=== PATIENT | male | born 1945 | race African-American/Black ===

== ENCOUNTER 2020-06-18 20:13 | Emergency (ER) | payer OTHER ==
[~2020-06-18] VITALS: Ht 180.3 cm; Wt 95.3 kg
[~2020-06-18 20:13] MED LIST: AMLODIPINE BESYL5 MG PO; CARVEDILOL25 MG PO; CORTEF 20 MG TA20 MG PO; IMDUR 60 MG TAB60 M1 PO; LAMICTAL200 MG PO; LEVOTHYROXINE0.05 MG PO; LIPITOR10 MG PO; ZESTRIL40 MG PO
[2020-06-18 21:24] LABS: ABSOLUTE NEUTROPHILS 10.5 thou/uL (1.4-8.2); BASOPHILS 0.9 % (0.0-2.0); EOSINOPHILS 0.6 % (0.0-3.0); HEMATOCRIT 41.6 % (42.0-52.0); HEMOGLOBIN 13.3 gm/dL (14.0-18.0); MCH 26.4 pg (26.0-34.0); MCHC 32.1 g/dL (28.0-37.0); MCV 82.2 fL (80.0-100.0); MONOCYTES 8.9 % (1.0-8.0); PLATELET COUNT 175 thou/uL (150-400); POLYS 73.6 % (36.0-66.0); RBC 5.06 mil/uL (4.50-6.00); RDW 15.8 % (10.5-14.5); WBC 14.3 thou/uL (4.0-11.0)
[2020-06-18 21:27] LABS: ANION GAP 13 mmol/L (7-16); BUN 17 mg/dL (7-18); CHLORIDE 104 mmol/L (98-107); CO2 24 mmol/L (21-32); CREATININE 1.8 mg/dL (0.7-1.3); GLUCOSE 100 mg/dL (74-106); POTASSIUM 3.9 mmol/L (3.5-5.1); SODIUM 141 mmol/L (136-145)
[2020-06-18 21:36] LABS: TROPONIN-I <0.06 ng/mL (<0.06)
[2020-06-19 00:31] LABS: URINE BILIRUBIN NEGATIVE (Negative); URINE BLOOD 3+ (Negative); URINE CLARITY TURBID; URINE COLOR RED; URINE GLUCOSE-RANDOM* NEGATIVE (Negative); URINE KETONES 1+ (Negative); URINE PROTEIN (DIPSTICK) 2+ (Negative)
[2020-06-19 00:33] LABS: URINE LEUKOCYTES-REFLEX 2+ (Negative); URINE NITRITE-REFLEX POSITIVE (Negative)
[2020-06-19 00:39] LABS: AMP/METHAMP Negative (Negative); BARBITURATES Negative (Negative); BENZODIAZEPINES Negative (Negative); COCAINE Negative (Negative); METHADONE Negative (Negative); OPIATES Negative (Negative); PCP Negative (Negative)
[2020-06-19 00:45] LABS: BACTERIA-REFLEX 1-9 Few /HPF (None Seen); CASTS None Seen /LPF (None Seen); CRYSTALS None Seen /LPF (None Seen); MUCUS 0-3 Light strn/LPF (None Seen); SQUAMOUS 0-3 Few /LPF (0-3); URINE RBC >20 Many /HPF (0-2); WBC CLUMPS Moderate (None Seen)
[2020-06-19] MEDS ORDERED: CIPRO500 M1 PO (00:52)
[2020-06-19 01:10] VITALS: BP 144/80
--- NOTE | 2020-06-20 07:17 | EKG ---
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: [facility] : 1945 Requested By: João Porter Order Number: [id number] MD: Justice Kunz Measurements Intervals [place] Rate: 91 P: -4 [place]: 168 QRS: -54 QRSD: 103 T: 85 QT: 352 QTc: 434 Interpretive Statements Sinus rhythm Ventricular premature complex Left anterior fascicular block Abnormal R-wave progression, late transition Left ventricular hypertrophy Baseline wander in lead(s) V6 No previous ECG available for comparison Electronically Signed On 06-20-2020 7:17:17 RECORD MAKER by Justice Kunz [email or web address] <ELECTRONICALLY SIGNED> By: Justice Kunz MD, [facility] 06/20/20716 16 16 Justice Kunz MD, FACC /EPI
== END 2020-06-19 01:10 | disposition home or self-care (01) ==
LOC: ER 20:13
PROVIDERS: Nurse Practitioner
DX: N39.0 Urinary tract infection, site not specified (principal); I10 Essential (primary) hypertension; Z79.899 Other long term (current) drug therapy; Z88.2 Allergy status to sulfonamides

== ENCOUNTER 2021-01-21 18:28 | Inpatient (IN) | payer OTHER ==
[~2021-01-21] VITALS: Ht 172.7 cm; Wt 77.3 kg
[~2021-01-21 18:28] MED LIST changes: -AMLODIPINE BESYL5 MG PO; +CIPRO500 M1 PO; +NORVASC10 MG PO
[2021-01-21 18:50] VITALS: BP 121/67
[2021-01-21 20:03] LABS: ABSOLUTE NEUTROPHILS 12.1 thou/uL (1.4-8.2); BASOPHILS 0.8 % (0.0-2.0); EOSINOPHILS 0.3 % (0.0-3.0); HEMATOCRIT 41.8 % (42.0-52.0); HEMOGLOBIN 13.9 gm/dL (14.0-18.0); LYMPHOCYTES 10.6 % (24.0-44.0); MCH 26.9 pg (26.0-34.0); MCHC 33.2 g/dL (28.0-37.0); MONOCYTES 9.6 % (1.0-8.0); PLATELET COUNT 170 thou/uL (150-400); POLYS 78.7 % (36.0-66.0); RBC 5.16 mil/uL (4.50-6.00); WBC 15.4 thou/uL (4.0-11.0)
[2021-01-21 20:11] LABS: CALCIUM 9.1 mg/dL (8.5-10.1); CREATININE 1.8 mg/dL (0.7-1.3)
[2021-01-21 20:12] LABS: URINE BILIRUBIN NEGATIVE (Negative); URINE BLOOD 2+ (Negative); URINE CLARITY CLEAR; URINE COLOR YELLOW; URINE GLUCOSE-RANDOM* NEGATIVE (Negative); URINE KETONES 1+ (Negative); URINE LEUKOCYTES-REFLEX TRACE (Negative); URINE NITRITE-REFLEX NEGATIVE (Negative); URINE PROTEIN (DIPSTICK) TRACE (Negative)
[2021-01-21 20:18] LABS: ALBUMIN 3.8 g/dL (3.4-5.0); TOTAL PROTEIN 7.4 g/dL (6.4-8.2)
[2021-01-21 20:35] LABS: CASTS None Seen /LPF (None Seen); MUCUS 4-6 Moderate strn/LPF (None Seen); SQUAMOUS None Seen /LPF (0-3)
[2021-01-21 20:36] LABS: URINE RBC 3-10 Few /HPF (NONE SEEN); URINE WBC-REFLEX 6-15 Few /HPF (0-5); WBC CLUMPS Few (None Seen)
[2021-01-21 20:37] LABS: BACTERIA-REFLEX 1-9 Few /HPF (None Seen)
[2021-01-21 20:38] LABS: CRYSTALS None Seen /LPF (None Seen)
[2021-01-21] MEDS ORDERED: DULCOLAX STOOL100 M1 PO (21:27)
[2021-01-21] MEDS ORDERED: ALLOPURINOL 10100 M1 PO (21:27)
[2021-01-21] MEDS ORDERED: VITAMIN D310 MC2 PO (21:28)
[2021-01-21] MEDS ORDERED: ARICEPT10 M1 PO (21:29)
[2021-01-21] MEDS ORDERED: SUPER THERAVIT1 EACH PO (21:31)
[2021-01-21] MEDS ORDERED: MEMANTINE HCL10 MG PO (21:31)
[2021-01-21] MEDS ORDERED: FLOVENT DISKUS50 MCG NASAL (21:32)
[2021-01-22 05:51] LABS: HEMATOCRIT 38.8 % (42.0-52.0); HEMOGLOBIN 12.6 gm/dL (14.0-18.0); MCH 26.7 pg (26.0-34.0); MCHC 32.5 g/dL (28.0-37.0); MCV 82.1 fL (80.0-100.0); RBC 4.73 mil/uL (4.50-6.00); RDW 14.8 % (10.5-14.5); WBC 13.6 thou/uL (4.0-11.0)
[2021-01-22 05:58] LABS: CALCIUM 7.8 mg/dL (8.5-10.1); CREATININE 1.5 mg/dL (0.7-1.3); POTASSIUM 3.8 mmol/L (3.5-5.1)
--- NOTE | 2021-01-22 09:46 | NUR ---
75 year old male presenting to the ED on 01-21-21 for suspected UTI. Per the pt's family, pt has had increased confusion and a temp above 100 all day today. Patient also had a decrease in PO intake. Per ED assessment patient is alert and confused. Per the patient's family the patient normally participates in an Adult Day Care. Per ED assessment patient is listed as vaccinated and ID NOW in ED shows Negative. The patient has been admitted with Sepsis, UTI, HTN ? seizure disorder. The patient was escorted to the ED by his son Jaden Marcos at [phone]. 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 Jaden states the patient has been to [facility], [place] and [place] in the past for SNF care. Re-introduced the role of CM and also gave my number as a contact, and informed him that once his father has a bed another member of the CM would be following up.
[2021-01-22 10:22] VITALS: BP 138/60
[2021-01-22 17:44] VITALS: BP 157/78
[2021-01-22 18:13] VITALS: BP 157/78
[2021-01-22 18:34] VITALS: BP 157/78
[2021-01-22 22:18] VITALS: BP 155/92
--- NOTE | 2021-01-23 03:07 | NUR ---
PT ADMITTED TO THE UNIT WITH C/O FEVER .PT IS A/O TO SELF .PT IS FROM HOME AND ATTENDS ADULT DAYCARE.PT IS INCONTINENT .PT CONFUSE AND UNABLE TO ANSWER QUESTIONS.PT APPEAR TO BE IN NO ACUTE DISTRESS AND DENIED PAIN.IV ACCESS ON LAC WITH NS AT 126CC/HR.WILL CONTINUE TO MONITOR
[2021-01-23 07:24] VITALS: BP 168/69
--- NOTE | 2021-01-23 15:01 | NUR ---
PT IS A&O*1, RESPONSE TO NAME, ROOM AIR, NO PAIN REPORT. HAS BEEN TURN Q2 WITH MAX ASSISTANCE. DC NS FLUID DUE TO PT INCREASE APPETITE AND EAT&DRINK MOST FOOD WITHIN TRAY. CONDOM CATETHER DUE TO INCOTINENT IS INTACT. NSR SHOWING ON TELE. BED ALARM IS ON. WILL KEEP MONITOR PT'S SAFETY UNTIL SHIFT CHANGE.
[2021-01-23 15:36] LABS: ABSOLUTE NEUTROPHILS 8.2 thou/uL (1.4-8.2); BASOPHILS 0.4 % (0.0-2.0); EOSINOPHILS 0.6 % (0.0-3.0); HEMATOCRIT 39.3 % (42.0-52.0); HEMOGLOBIN 12.9 gm/dL (14.0-18.0); LYMPHOCYTES 7.1 % (24.0-44.0); MCH 26.9 pg (26.0-34.0); MCHC 32.9 g/dL (28.0-37.0); MCV 81.7 fL (80.0-100.0); MONOCYTES 5.5 % (1.0-8.0); PLATELET COUNT 165 thou/uL (150-400); POLYS 86.4 % (36.0-66.0); RBC 4.81 mil/uL (4.50-6.00); RDW 14.6 % (10.5-14.5); WBC 9.5 thou/uL (4.0-11.0)
--- NOTE | 2021-01-23 15:38 | NUR ---
PT IS A&O*3, ROOM AIR, NEED MAX ASSISTANCE TO TURN Q2, INCOTINNET. HAD THREE LARGE LOOSE BM TODAY, NOTIFIED FOR CHANGING SCHEDULE MIRAX TO PRN. PT'S POTASSOUM WAS LOW IN THE MORNING 2.9, 2 DOSE OF 40 PO K GIVEN, RECHECKED AT 13:00, LOW K 3.2. CALLED FOR FURTHER ORDER. NS CHANGED TO 0.45 SODIUM CHLORIDE WITH KCL TO PROTECT PT'S K LEVEL. SPEECH THERAPY EVALUATED PT AND KEEP NEED HONEY THICKER WITH LIQUID. PUT A CANE OF THICK UP FOR PT USE. NO PAIN. IV WAS ABSENT WHEN ASSESS PT IN THE MORNING. NEW IV PUT IN AT RIGHT AC IN 22 G. BED ALARM IS ON. SINUS TACHY ON TELE, HR 100. WILL KEEP MONITOR PT'S SAFETY UNTIL SHIFT CHANGE.
[2021-01-23 15:43] LABS: CALCIUM 8.5 mg/dL (8.5-10.1); CREATININE 1.5 mg/dL (0.7-1.3); POTASSIUM 3.7 mmol/L (3.5-5.1)
[2021-01-23 16:36] VITALS: BP 137/86
[2021-01-23 21:39] VITALS: BP 185/99
[2021-01-23 23:12] VITALS: BP 145/75
[2021-01-24 02:35] LABS: HEMATOCRIT 39.3 % (42.0-52.0); HEMOGLOBIN 12.7 gm/dL (14.0-18.0); MCH 26.2 pg (26.0-34.0); MCHC 32.3 g/dL (28.0-37.0); MCV 81.3 fL (80.0-100.0); RBC 4.83 mil/uL (4.50-6.00); RDW 15.6 % (10.5-14.5); WBC 9.4 thou/uL (4.0-11.0)
--- NOTE | 2021-01-24 02:39 | NUR ---
PT CARE ASSUMED WITH PT IN BED AT 1900.PT IS A/O X1 .PT IS BEDREST.PT DENIED PAIN.PT IS INCONTINENT TO B/B.PT HAD A TEMP OF 99.3 AND TYLENOL ADMINISTERED.PT IS ON ROOM AIR.PT APPEAR TO BE IN NO ACUTE DISTRESS.WILL CONTINUE TO MONITOR
[2021-01-24 02:45] LABS: CALCIUM 8.1 mg/dL (8.5-10.1); CREATININE 1.2 mg/dL (0.7-1.3); POTASSIUM 3.7 mmol/L (3.5-5.1)
[2021-01-24 07:08] VITALS: BP 189/100
[2021-01-24 07:10] VITALS: BP 179/106
[2021-01-24 11:10] VITALS: BP 115/69
--- NOTE | 2021-01-24 12:31 | NUR ---
ASSUMED PT CARE THIS AM. PT A&OX1, DOES NOT MAKE NEEDS KNOWN. FALL PRECAUTIONS ARE IN PLACE, CALL LIGHT IN REACH. PATIENT RENMAINS INCONTINENT, EXTERNAL MALE CATHETER WORKING. BLOOD PRESSURE ELEVATED, GAVE ALL BLOOD PRESSURE MEDICATION AND BLOOD PRESSURE DECREASED ACCORDINGLY. PATIENT IV PATENT, FLUIDS INFUSING. PATIENT TOOK MORNING MEDICATIONS WITHOUT ISSUE.
[2021-01-24 14:32] VITALS: BP 146/92
--- NOTE | 2021-01-24 17:59 | NUR ---
PT AND OT EVALS NEEDED AND IN PROCESS. PT MAY BE NEEDING POST ACUTE CARE. CM TO FOLLOW FOR DC ANTICIPATED NEEDS.
[2021-01-24 21:06] VITALS: BP 179/90
--- NOTE | 2021-01-25 04:49 | NUR ---
PATIENT AOX1 CONFUSED AND FORGETFUL. PATIENT ENCOURAGED FLUIDS. FALL PRECAUTON IN PLACE. PATIENT INCONTIENT PERICARE AND BARRIER CREAM APPLIED NEEDED.PATIENT DENIED PAIN OR DISCOMFORT.PATIENT IN BED ASLEEP AT THIS TIME BREATHING REGULAR AND UNLABOURED.
[2021-01-25 07:10] VITALS: BP 182/101
[2021-01-25 09:45] VITALS: BP 109/68
[2021-01-25 15:19] VITALS: BP 142/81
--- NOTE | 2021-01-25 17:52 | NUR ---
Alert, calm and cooperative. oxygen 97% on room air. Dr. Armstrong is aware of it.
[2021-01-25 19:31] VITALS: BP 170/86
[2021-01-26 06:16] LABS: HEMATOCRIT 44.6 % (42.0-52.0); MCH 26.8 pg (26.0-34.0); MCV 81.2 fL (80.0-100.0); RBC 5.5 mil/uL (4.50-6.00); RDW 14.8 % (10.5-14.5); WBC 7.3 thou/uL (4.0-11.0)
[2021-01-26 06:22] LABS: HEMOGLOBIN 14.7 gm/dL (14.0-18.0)
[2021-01-26 06:44] LABS: CALCIUM 9.1 mg/dL (8.5-10.1); CREATININE 1.2 mg/dL (0.7-1.3); POTASSIUM 3.8 mmol/L (3.5-5.1)
[2021-01-26 09:00] VITALS: BP 163/87
[2021-01-26 16:30] VITALS: BP 151/85
[2021-01-26 19:08] VITALS: BP 158/98
--- NOTE | 2021-01-27 03:54 | NUR ---
PROGRESS PT ALERT TO SELF PLEASANT AND COOPERATIVE. NO ATTEMPTS TO GET OOB INDEPENDENTLY THIS SHIFT. BED ALARM ON AND ALL FALL PRECAUTIONS IN PLACE. PT REPOSITIONS SELF INDEPENDENTLY AND WITH ENCOURAGEMENT. BP ELEVATED AT 158/98 HYDRALAZINE NOT GIVEN SCHEDULED COREG GIVEN INSTEAD. TAKING ADEQUATE PO FLUIDS AND HAD ICE CREAM BEFORE BED SLEPT MOST OF SHIFT. PLAN TO DC TO SNF TODAY.
--- NOTE | 2021-01-27 07:26 | NUR ---
Assess for length of stay. Admit with urosepsis. Eating 75-100% most meals and no wt loss was reported. Low nutrition risk
[2021-01-27 07:50] VITALS: BP 144/103
--- NOTE | 2021-01-27 12:09 | NUR ---
CARE TEAM INDICATED THAT PT'S SON IS INTERESTEDIN PT GOING TO SKILLED UPON DC. CM CALLED AND LEFT VM WITH PT'S SON. CM FOLLOWING REGARDING DC PLANNING.
--- NOTE | 2021-01-27 14:14 | NUR ---
FAXED REFERRAL AND NEGATIVE COVID RESULT (01/21/21) TO [facility]. NOTED TO ALLISON/ADMISSIONS TO PLEASE REVIEW AND SUBMIT FOR INSURANCE AUTHORIZATION. WILL CONFIRM SHE RECEIVED AND BED AVAILABILITY. [facility] P [phone]; FAX [phone]; M [phone]
[2021-01-27 16:49] VITALS: BP 130/75
--- NOTE | 2021-01-27 17:13 | NUR ---
ASSUMED CARE OF PATIENT AT SHIFT CHANGE. ASSESSMENT CHARTED. MEDICATIONS GIVEN PER EMAR. BP IS ELEVATED; PATIENT GIVEN SCHEDULED BP & CARDIAC MEDS ONLY TO NOT CAUSE BP TO DROP EXCESSIVELY. PATIENT IS CONFUSED AND CONSTANTLY HITS THE CALL LIGHT BUT DENIES NEEDS. FREQUENT TURNING IS OFFERED & DONE. PATIENT HAS A CONDOM CATHETER BUT IS INCONTINENT OF BOTH BOWEL AND BLADDER. TAKES PUREED FOODS WELL & MEDICATIONS CRUSHED. PATIENT IS IN PROCESS OF BEING ACCEPTED TO A SNF; PATIENT IS STABLE. NO ISSUES. FALL PRECAUTIONS REMAIN IN PLACE AT ALL TIMES; NO ISSUES WITH PT/OT & SITTING IN CHAIR FOR DINNER. WILL CONTINUE TO MONITOR AND FOLLOW PLAN OF CARE
[2021-01-27 19:38] VITALS: BP 148/85
--- NOTE | 2021-01-28 04:45 | NUR ---
PT SLEPT MOST OF THE NIGHT. RESPIRATIONS EVEN AND UNLABORED. REPOSITIONED TO PREVENT SKIN BREAKDOWN. PT IS ORIENTED TO SELF, BUT PLEASANTLY CONFUSED WHEN AWAKE. EXTERNAL CATHETER IN PLACE AND DRAINING WELL. FALL PRECAUTIONS IN PLACE. PROGRESSING SLOWLY TOWARD POC GOALS.
[2021-01-28 06:01] LABS: HEMATOCRIT 42.6 % (42.0-52.0); HEMOGLOBIN 14.2 gm/dL (14.0-18.0); MCHC 33.4 g/dL (28.0-37.0); MCV 80.8 fL (80.0-100.0); RBC 5.28 mil/uL (4.50-6.00); RDW 14.9 % (10.5-14.5); WBC 6.4 thou/uL (4.0-11.0)
[2021-01-28 06:30] LABS: CALCIUM 8.8 mg/dL (8.5-10.1); CREATININE 1.4 mg/dL (0.7-1.3); POTASSIUM 3.6 mmol/L (3.5-5.1)
[2021-01-28 07:12] VITALS: BP 167/93
--- NOTE | 2021-01-28 09:48 | NUR ---
XAVIER SPOKE WITH MARGUERITE IN ADMISSION AT [facility] THIS AM AND SHE INDICATED THAT THEY CAN ACCEPT PT FOR ADMISSION AND THEY WILL SUBMIT FOR AUTH FROM [facility]. NOW AWAITING AUTH.
[2021-01-28 13:21] VITALS: BP 158/74
--- NOTE | 2021-01-28 14:45 | NUR ---
PT IS A&O*2, ROOM AIR, NO PAIN. NEED MODERATE ASSISTANCE TO GET UP. WALKED AND SIT UP IN THE CHAIR TODAY. REFUSED MORNING MEDICATON DUE TO CONFUSION. NOTIFIED AND RE-EDUCATED PT COUPLE TIMES AND TAKEN AROUNG 1300. NSR ON TELE AND WILL KEEP MONITOR PATIENT'S SAFETY AND VITAL SIGNS.
[2021-01-28 15:12] VITALS: BP 141/81
[2021-01-28 19:27] VITALS: BP 128/81
--- NOTE | 2021-01-29 03:21 | NUR ---
ASSUMED PT CARE AT 1905. PT IS ALERT AND ORIENTED X2. PT HAD A FLAT AFFECT.PT IS MOD ASSIST TO THE BED WITH GB. MEDICTATIONS WERE GIVEN PER EMAR. VS ARE STABLE AND ASSESSMENT CHARTED. PT HAS EXTERNAL CATHETER ON . PT DID NOT VOICE ANY CONCERNS AND NO VISIBLE SIGNS OF DISTRESS WAS NOTED. PT TOLERATING RA. FALLL PREACUTIONS IN PLACE WITH CALL LIGHT WITHIN REACH. WILL CONTINUE TO MONITOR.
[2021-01-29 08:40] VITALS: BP 176/93
[2021-01-29 15:05] VITALS: BP 158/92
--- NOTE | 2021-01-29 15:15 | NUR ---
PT IS A&O*4, ROOM AIR, NSR ON TELE, NO PAIN. WORKED WITH PT, OT AND SIT UP TO THE CHAIR. BED ALARM AND CHAIR ALARM HAS BEEN APPLIED. EXTERNAL CATETHER IS INTACT AND WORKS WELL FOR PT. WILL KEEP MONITOR PATINET'S SAFETY UNTIL DISCHARGE.
--- NOTE | 2021-01-29 16:45 | NUR ---
XAVIER HEARD FROM CHEALSEA AT [facility] AND SHE SAID THAT LEILA IS NEEDING A FORM COMPLETED BEFORE THEY WILL REVIEW A REFERRAL. CM COMPLETED FORM AND FAXED BACK WITH UPDATED CLINICAL AND THEYAPY NOTES. AWAITING AUTH FOR SKILLED AT [facility]. CM FOLLOWING REGARDING DC PLANNING.
[2021-01-29 20:19] VITALS: BP 168/97
--- NOTE | 2021-01-30 01:32 | NUR ---
ASSUMED PT CARE AT 1900. PT IS ALERT AND ORIENTED WITH CONFUSION. PT CAN BE IMPULSIVE AND TRIES TO GET UP WITHOUT ANY ASSISTANCE. PT HAS EXTERNAL CATHETER WHICH IS PATENT. VS DONE AND MEDS GIVEN PER EMAR ORDER.PT TOLERATING RA. BED ON LOWEST LOCKED POSITION WITH BED ALARM ON AND CALL LIGHT WITHIN REACH. WILL CONTINUE TO MONITOR.
[2021-01-30 07:24] VITALS: BP 155/82
--- NOTE | 2021-01-30 10:27 | NUR ---
ASSUMED PT CARE THIS AM. PT IS ALERT & ORIENTED X2 TO PERSON AND PLACE BUT FORGETFUL AT TIMES. PT IS UP WITH ASSIST X1 WITH WALKER AND GAITBELT. PT HAS CONDOM CATH PLACE IN. PT IS ON ROOM AIR. PT IS ON TELE MONITOR ON. PT HAS IV SITE ON L AC SALINE LOCKED. PT TOLERATED MEDICATION AND DIET WELL. NO C/O OF PAIN, NAUSEA AND VOMITING. PHYSICAL THERAPY WAS WORKING WITH PT TODAY. AWAITING FOR INSURANCE AUTHORIZATION. WILL CONTINUE TO MONITOR PT. FOLLOW POC.
[2021-01-30 15:14] VITALS: BP 134/87
[2021-01-30 20:07] VITALS: BP 135/81
--- NOTE | 2021-01-31 02:41 | NUR ---
PT CARE ASSUMED WITH PT IN CHAIR WATCHING TV.PT IS A/O X2.PT IS UP WITH X2 ASSIST WITH GAIT BELT AND WALKER.PT HAS AN EXTERNAL MALE CATHETER IN PLACE.PT TRYING TO GET OUT OF BED,TAKING CLOTHES OFF AND DRIP MOLDER OFF.MIRLANDE DOWLING NOTIFIED AND HALDOL ONE DOSE ORDERED.IV ACCESS ON LT AC SL.PT TAKE MEDS WHOLE WITH NO ISSUES.PT IS ON ROOM AIR.FALL PRECAUTIONS IN PLACE.WILL CONTINUE TO MONITOR
[2021-01-31 07:59] VITALS: BP 183/74
--- NOTE | 2021-01-31 11:19 | NUR ---
THORMONTANA ANN WAS FINALLY RECIEVED FOR PT TO DC TO [facility] THIS DAY. KOREY LOPEZ TRANSPROT ARRANGED FOR 1400. CM NOTIFIED PT AND SON AND THEY ARE AGREEABLE. CHART COPY MADE. ORDERS TO BE FAXED ONCE COMPLETED. NURSE GIVEN NUMBER FOR REPORT. NO OTHER CM INTERVETION INDICATED. CASE CLOSED.
[2021-01-31 12:09] VITALS: BP 125/84
--- NOTE | 2021-01-31 12:26 | NUR ---
ASSUMED CARE OF PATIENT AT SHIFT CHANGE. ASSESSMENT CHARTED. MEDICATIONS ADMINISTERED PER EMAR. PATIENT IS ALERT TO SELF AND RESPONSIVE. PATIENT FELL LAST WEEK AND IS ON FALL PRECAUTIONS WITH FREQUENT CHECKS. PATIENT HAD A HIGH BP WHICH WAS LOWERED AFTER BP MEDS WERE ADMINISTERED; VSS. PATIENT REFUSED BREAKFAST BUT PREFERS SWEETS AND DID EAT HIS ICE CREAM WITH HIS MEDICATIONS & HAD SNACKS. PATIENT REMAINS MEDICALLY STABLE AND HAS BEEN AUTHORIZED BY INSURANCE [facility]. INCONT OF B&B; Q2 TURNS OFFERED. SR ON TELE. NO OTHER ISSUES THIS SHIFT. WILL CONTINUE FFREQUENT MONITORING ON PATIENT
[2021-01-31] MEDS ORDERED: CLONIDINE HCL0.3 M3 PO (12:47)
[2021-01-31] MEDS ORDERED: LISINOPRIL20 MG PO (12:47)
--- NOTE | 2021-01-31 17:10 | NUR ---
REPORT CALLED TO LINDSAY COLON WHO WILL BE ADMITTING PATIENT TO [facility].
== END 2021-01-31 17:10 | DRG 871 ==
LOC: ER 18:28 → EROBS 21:48 → 4W 21:48 → EROBS 01-22 08:46 → 4W 01-22 18:27
PROVIDERS: Emergency Medicine; Hospitalist; Nurse Practitioner Family; ADMIT Internal Medicine; ATTEND Internal Medicine
DX: A41.9 Sepsis, unspecified organism (principal); G93.41 Metabolic encephalopathy; N17.0 Acute kidney failure with tubular necrosis; N39.0 Urinary tract infection, site not specified; E23.0 Hypopituitarism; E03.9 Hypothyroidism, unspecified; F03.90 Unspecified dementia, unspecified severity, without behavioral disturbance, psychotic disturbance, mood disturbance, and anxiety; G40.909 Epilepsy, unspecified, not intractable, without status epilepticus; E78.5 Hyperlipidemia, unspecified; M10.9 Gout, unspecified; N18.9 Chronic kidney disease, unspecified; I12.9 Hypertensive chronic kidney disease with stage 1 through stage 4 chronic kidney disease, or unspecified chronic kidney disease; D49.6 Neoplasm of unspecified behavior of brain; R53.81 Other malaise; E86.0 Dehydration; Z88.2 Allergy status to sulfonamides; Z20.822 Contact with and (suspected) exposure to COVID-19
CPT/HCPCS: 10045

== ENCOUNTER 2021-02-11 13:34 | Inpatient (IN) | payer OTHER ==
[~2021-02-11] VITALS: Ht 175.3 cm; Wt 80.7 kg
[~2021-02-11 13:34] MED LIST changes: +ALLOPURINOL 10100 M1 PO; +ARICEPT10 M1 PO; +CLONIDINE HCL0.3 M3 PO; +DULCOLAX STOOL100 M1 PO; +FLOVENT DISKUS50 MCG NASAL; +LISINOPRIL20 MG PO; +MEMANTINE HCL10 MG PO; +SUPER THERAVIT1 EACH PO; +VITAMIN D310 MC2 PO
[2021-02-11 13:35] VITALS: BP 102/65
[2021-02-11 14:10] LABS: ABSOLUTE NEUTROPHILS 7.3 thou/uL (1.4-8.2); BASOPHILS 0.7 % (0.0-2.0); EOSINOPHILS 3.6 % (0.0-3.0); HEMATOCRIT 41.4 % (42.0-52.0); HEMOGLOBIN 13.3 gm/dL (14.0-18.0); LYMPHOCYTES 15.3 % (24.0-44.0); MCH 26.5 pg (26.0-34.0); MCV 82.7 fL (80.0-100.0); MONOCYTES 4.9 % (1.0-8.0); PLATELET COUNT 189 thou/uL (150-400); POLYS 75.5 % (36.0-66.0); RBC 5.01 mil/uL (4.50-6.00); RDW 14.8 % (10.5-14.5); WBC 9.6 thou/uL (4.0-11.0)
[2021-02-11 14:15] LABS: URINE BILIRUBIN NEGATIVE (Negative); URINE BLOOD 3+ (Negative); URINE CLARITY SL CLOUDY; URINE COLOR YELLOW; URINE GLUCOSE-RANDOM* NEGATIVE (Negative); URINE KETONES NEGATIVE (Negative); URINE LEUKOCYTES-REFLEX 1+ (Negative); URINE NITRITE-REFLEX NEGATIVE (Negative); URINE PROTEIN (DIPSTICK) NEGATIVE (Negative); URINE SPECIFIC GRAVITY 1.015 (1.005-1.035); URINE UROBILINOGEN 0.2 E.U./dl (0.2-1.0)
[2021-02-11 14:17] LABS: ANION GAP 5 mmol/L (7-16); BUN 19 mg/dL (7-18); CALCIUM 8.5 mg/dL (8.5-10.1); CHLORIDE 106 mmol/L (98-107); CO2 29 mmol/L (21-32); CREATININE 1.4 mg/dL (0.7-1.3); GLUCOSE 100 mg/dL (74-106); POTASSIUM 3.9 mmol/L (3.5-5.1); SODIUM 140 mmol/L (136-145)
[2021-02-11 14:26] LABS: ALBUMIN 3.2 g/dL (3.4-5.0); MAGNESIUM 2.1 mg/dL (1.8-2.4); SGOT 27 U/L (15-37); SGPT 51 U/L (30-65); TOTAL BILIRUBIN 0.4 mg/dL (0.2-1.0); TOTAL PROTEIN 6.8 g/dL (6.4-8.2); TROPONIN-I <0.06 ng/mL (<0.06)
[2021-02-11 14:40] LABS: BACTERIA-REFLEX 1-9 Few /HPF (None Seen); CASTS None Seen /LPF (None Seen); CRYSTALS None Seen /LPF (None Seen); SQUAMOUS 0-3 Few /LPF (0-3); URINE WBC-REFLEX 6-15 Few /HPF (0-5)
[2021-02-11 15:48] VITALS: BP 120/70
[2021-02-11 16:11] VITALS: BP 119/67
[2021-02-11 16:40] VITALS: BP 124/69
--- NOTE | 2021-02-11 18:26 | NUR ---
PATIENT ADMIT TO UNIT AT 1700 FROMER. A/O X2. VSS. DENIES PAIN. NO DIZINESS. GOOD APPETITE. CALLED [facility] TO FAX OVER MED LIST. WILL KEEP MONITOR.
[2021-02-11] MEDS ORDERED: HYDROCORTISONE30 GM PO (18:50)
[2021-02-11 19:32] VITALS: BP 139/72
[2021-02-12 00:24] VITALS: BP 145/78
--- NOTE | 2021-02-12 01:25 | NUR ---
ASSUMED CARE OF PT AT 1900, PT IS ALERT TO SELF AND PLEASENT. ASSESSMENT COMPLETED NOTED. PT ON RA, WITH FALL PRECAUTIONS IN PLACE. PT BELIEVES HE IS AT HOME AND THE YEAR IS 1989. PT IS INCONTINENT OF BOWEL AND BLADDER AND WILL STAND UP WHEN WET. WILL CONTINUE TO WORK TOWARDS PT'S POC.
--- NOTE | 2021-02-12 01:32 | NUR ---
ASSUMED CARE OF PT AT 1900, PT IS A/O X4 WITH IV FLUIDS INFUSING. ASSESSMENT COMPLETED NOTED. PT HAS MYNX CLOSURE, THAT IS CLEAN, DRY AND INTACT. PT DENIES PAIN AT THIS TIME, WILL CONTINUE TO WORK TOWARDS PT'S POC.
[2021-02-12 04:39] VITALS: BP 173/91
[2021-02-12 04:54] VITALS: BP 145/82; BP 172/100
--- NOTE | 2021-02-12 07:47 | EKG ---
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: LUIS MANUEL : 1945 Requested By: Chadwick Ceh Order Number: [id number] MD: Justice Kunz Measurements Intervals [place] Rate: 57 P: 9 FL: 186 QRS: -44 QRSD: 111 T: -25 QT: 436 QTc: 425 Interpretive Statements Sinus rhythm Abnormal R-wave progression, early transition Left ventricular hypertrophy Nonspecific T abnormalities, inferior leads Compared to ECG 06/18/2020 20:17:20 T-wave abnormality now present ST (T wave) deviation now present Ventricular premature complex(es) no longer present Electronically Signed On 02-12-2021 7:47:20 CDT by Justice Kunz [email or web address] <ELECTRONICALLY SIGNED> By: Justice Kunz MD, [facility] 02/12/21 0747 1334 1334 Justice Kunz MD, [facility] /EPI
[2021-02-12 08:27] VITALS: BP 154/97
[2021-02-12 10:44] LABS: HEMATOCRIT 42.3 % (42.0-52.0); HEMOGLOBIN 13.6 gm/dL (14.0-18.0); MCH 26.4 pg (26.0-34.0); MCHC 32.1 g/dL (28.0-37.0); MCV 82.3 fL (80.0-100.0); RBC 5.14 mil/uL (4.50-6.00); RDW 14.9 % (10.5-14.5); WBC 7.3 thou/uL (4.0-11.0)
[2021-02-12 11:15] LABS: ALBUMIN 3.3 g/dL (3.4-5.0); ANION GAP 8 mmol/L (7-16); BUN 12 mg/dL (7-18); CALCIUM 8.7 mg/dL (8.5-10.1); CHLORIDE 105 mmol/L (98-107); CO2 29 mmol/L (21-32); CREATININE 1.4 mg/dL (0.7-1.3); GLUCOSE 101 mg/dL (74-106); POTASSIUM 3.7 mmol/L (3.5-5.1); SGOT 22 U/L (15-37); SGPT 49 U/L (30-65); SODIUM 142 mmol/L (136-145); TOTAL BILIRUBIN 0.6 mg/dL (0.2-1.0); TROPONIN-I <0.06 ng/mL (<0.06)
--- NOTE | 2021-02-12 12:01 | NUR ---
Case opened to follow for dc planning. Pt was recently here with UTI/penumonia and was dc'd to SNF at [facility] on 01/31. He readmitted with UTI/syncopal episode. Echo today, urine cultures are pending and his is on iv atb. Pt is getting an echo this am. Substation Electrician spoke with his son Jaden barakat in admissions at [facility]. They can accept him for readmission when medically ready but they will need a new cigna auth. Clinical update to be faxed once PT/OT and ST evals are completed today. Pt's son agreeable to return to SNF rehab at [facility]. The family's goal is for the pt to be able to get stronger and return home with them. 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 He uses a rwalker and is normally A&ox2. Message sent to the attending to contact the pt's son and he has several medical questions.
--- NOTE | 2021-02-12 13:16 | 2DMMODE ---
[facility] [place] [address] 2 D/M-MODE ECHOCARDIOGRAM Name: MUSHTAQ ODOM Room #: 202-P ADM IN M.R.#: [id number] Admission: 02/11/21 Attend Phys: Minh Beavers MD Discharge: Date of : 49 Report #: [id number] THIS REPORT FOR: cc: Amber Okeefe Shanna R. DO Park, Jin S. MD ~ APPROVED REPORT Study performed: 02/12/2021 11:23:15 EXAM: Comprehensive 2D, Doppler, and color-flow Echocardiogram Patient Location: In-Patient Room #: 202 BSA: 1.98 HR: 77 bpm BP: 154/97 mmHg Rhythm: NSR Other Information Study Quality: Adequate Indications Syncope 2D Dimensions RVDd: 23.47 mm IVSd: 9.62 (7-11mm) LVDd: 53.70 mm PWd: 12.98 (7-11mm) Ascending Ao: 37.55 (22-36mm) LVDs: 43.62 (25-40mm) Left Atrium: 38.97 (27-40mm) Aortic Root: 35.14 mm Volumes Left Atrial Volume (Systole) Single Plane 4CH: 17.21 mL Single Plane 2CH: 26.37 mL Biplane LA Volume: 24.00 mL LA ESV Index: 12.00 mL/m2 Aortic Valve LVOT Max P.73 mmHg LVOT Max V: 0.97 m/s Mitral Valve [facility] [address] [place] [address] 2 D/M-MODE ECHOCARDIOGRAM Name: MUSHTAQ ODOM Room #: 202-P ADM IN M.R.#: [id number] Admission: 02/11/21 Attend Phys: Minh Beavers MD Discharge: Date of : 49 Report #: [id number] E/A Ratio: 0.4 MV Decel. Time: 393.72 ms MV E Max Timo.: 0.53 m/s MV A Timo.: 1.19 m/s MV PHT: 114.18 ms IVRT: 129.18 ms Pulmonary Valve PV Peak Timo.: 0.81 m/s PV Peak Gr.: 2.64 mmHg Pulmonary Vein P Vein S: 0.43 m/s P Vein A: 0.24 m/s P Vein D: 0.36 m/s P Vein A Dur.: 133.8 msec P Vein S/D Ratio: 1.19 Tricuspid Valve TR Peak Timo.: 2.29 m/s RAP Estimate: 7.00 mmHg TR Peak Gr.: 20.93 mmHg RVSP: 28.00 mmHg Left Ventricle The left ventricle is normal size. There is normal LV segmental wall motion. There is normal left ventricular wall thickness. Left ventricular systolic function is low-normal. LVEF is 50-55%. Transmitral Doppler flow pattern suggests impaired LV relaxation. Right Ventricle The right ventricle is normal size. The right ventricular systolic function is normal. Atria The left atrium size is normal. The right atrium size is normal. Aortic Valve The aortic valve is normal in structure. Mild aortic regurgitation. There is no aortic valvular stenosis. Mitral Valve The mitral valve is normal in structure. Trace to mild mitral regurgitation. No evidence of mitral valve stenosis. Tricuspid Valve The tricuspid valve is normal in structure. Mild tricuspid regurgitation. [facility] [address] [place] [address] 2 D/M-MODE ECHOCARDIOGRAM Name: MUSHTAQ ODOM Room #: 202-P ADM IN M.R.#: [id number] Admission: 02/11/21 Attend Phys: Minh Beavers MD Discharge: Date of : 49 Report #: [id number] Pulmonic Valve The pulmonary valve is normal in structure. There is no pulmonic valvular regurgitation. Great Vessels The aortic root is normal in size. IVC is normal in size and collapses >50% with inspiration. Pericardium There is no pericardial effusion. There is no pleural effusion. <Conclusion> The left ventricle is normal size. There is normal left ventricular wall thickness. Left ventricular systolic function is low-normal. The right ventricle is normal size. The left atrium size is normal. Mild aortic regurgitation. Trace to mild mitral regurgitation. Mild tricuspid regurgitation. <ELECTRONICALLY SIGNED> By: Herve Hurst MD 02/12/216 15 15 Herve Hurst MD /INF
[2021-02-12 15:21] VITALS: BP 139/73
[2021-02-12 19:52] VITALS: BP 140/76
--- NOTE | 2021-02-13 00:27 | NUR ---
ASSUMED CARE OF PT AT 1900, PT IS ALERT TO SELF. ASSESSMENT COMPLETED NOTED. PT REFUSED MEDICATION THIS NOC, IV FLUIDS RUNNING ORDERED. WILL CONTINUE TO WORK TOWARDS PT'S POC.
[2021-02-13 05:02] VITALS: BP 168/101
[2021-02-13 08:50] VITALS: BP 167/96
[2021-02-13 15:21] VITALS: BP 131/71
--- NOTE | 2021-02-13 17:42 | NUR ---
Pt dc ready but ins auth pending for return to snf at [facility]. All parties anticipating dc back to snf likely tomorrow. The attending spoke with the pt's son and provided a clinical update.
--- NOTE | 2021-02-13 18:44 | NUR ---
ALERT. NO DISTRESS NOTED. PROGRESSING TOWARDS POC GOALS.
[2021-02-13 20:09] VITALS: BP 139/80
--- NOTE | 2021-02-14 01:25 | NUR ---
ASSUME CARE OF PT AT 1900, PT SITTING IN CHAIR VISITING WITH FAMILY MEMBER AT THIS TIME. PT ASSESSMENT COMPLETED NOTED, PT DENIES PAIN. WILL CONTINUE TO WORK TOWARDS PT'S POC.
[2021-02-14 04:48] VITALS: BP 176/97
[2021-02-14 07:20] VITALS: BP 152/81
[2021-02-14 13:35] VITALS: BP 125/73
--- NOTE | 2021-02-14 14:44 | NUR ---
Pt is dc ready for return to snf at [facility]. They can accept today or tomorrow pending ins auth. Pt/son aware of possible dc this evening or tomorrow as [facility] will setup w/c van once the auth is rec'd. Transport can be arranged per Jasvir Zimmerman by call her cell [phone]. DC summary and instructions will need to be faxed to [phone]. Chart copy is ready to be sent with the pt.
[2021-02-14 14:50] VITALS: BP 136/71
--- NOTE | 2021-02-14 15:07 | NUR ---
PT IS AXOX1; ALERT TO SELF; PT HAS HX OF DEMENTIA. VSS, AFEBRILE, SR 1AVB ON MONITOR. PT LIKES TO SIT UP IN CHAIR DURING THE DAY. PT HAS SOME WEAKNESS, UPX1 WITH WALKER AND GAIT BELT. DR PATTERSON CONSULTED, CASE MGMT CONSULTED. AWAITING AUTH FOR PT TO D/C BACK TO FACILITY. POC IS TO CONTINUE ABX THERAPY. FALL PRECAUTIONS IN PLACE. FREQUENT ROUNDING.
[2021-02-14 19:20] VITALS: BP 102/66
[2021-02-15 05:27] VITALS: BP 162/85
--- NOTE | 2021-02-15 07:39 | NUR ---
pt resting quietly in room, vss, pt up with assist of 1 w/gb and walker, alert to name, can be impulsive when needing the urinal, will con't to monitor per ppoc.
[2021-02-15 08:21] VITALS: BP 149/82
[2021-02-15 09:15] LABS: CALCIUM 9.2 mg/dL (8.5-10.1); CREATININE 1.5 mg/dL (0.7-1.3); POTASSIUM 3.8 mmol/L (3.5-5.1)
--- NOTE | 2021-02-15 09:47 | NUR ---
Assumed care of pt this AM. Pt is drowsy, oriented x4. Pt slightly impulsive when wants to use the urinal. Pt sleeping comfortably in bed most of the morning. Refused breakfast. SR w/ 1st degree AV block on monitor. Denies any chest pain. Hydralazine held this am d/t BP parameters. Will continue to assess pt needs throughout the day.
[2021-02-15 15:06] VITALS: BP 153/86
[2021-02-15 19:14] VITALS: BP 136/98
[2021-02-16 03:34] LABS: ABSOLUTE NEUTROPHILS 4.8 thou/uL (1.4-8.2); BASOPHILS 0.8 % (0.0-2.0); EOSINOPHILS 5.2 % (0.0-3.0); HEMATOCRIT 42.9 % (42.0-52.0); HEMOGLOBIN 14.2 gm/dL (14.0-18.0); LYMPHOCYTES 23.1 % (24.0-44.0); MCH 26.8 pg (26.0-34.0); MCV 81.2 fL (80.0-100.0); MONOCYTES 7.3 % (1.0-8.0); PLATELET COUNT 215 thou/uL (150-400); POLYS 63.6 % (36.0-66.0); RBC 5.28 mil/uL (4.50-6.00); RDW 14.9 % (10.5-14.5); WBC 7.5 thou/uL (4.0-11.0)
[2021-02-16 03:48] VITALS: BP 154/82
[2021-02-16 06:01] LABS: ALBUMIN 3.3 g/dL (3.4-5.0); CALCIUM 8.6 mg/dL (8.5-10.1); CREATININE 1.4 mg/dL (0.7-1.3); PHOSPHORUS 3.6 mg/dL (2.5-4.9); POTASSIUM 3.8 mmol/L (3.5-5.1); TOTAL BILIRUBIN 0.7 mg/dL (0.2-1.0); TOTAL PROTEIN 7.2 g/dL (6.4-8.2)
[2021-02-16 07:17] VITALS: BP 144/79
--- NOTE | 2021-02-16 10:56 | NUR ---
Assumed care of pt this AM. Pt is oriented to self & place. Pt on RA, denies any chest pain. Pt up w/ 1 assist & walker, can be impulsive when wet. Sinus rhythm on monitor. Pt more awake today than yesterday, but still sleepy. Will continue to assess pt needs throughout shift.
[2021-02-16 15:27] VITALS: BP 100/67
[2021-02-16 19:45] VITALS: BP 127/80
[2021-02-17 03:14] VITALS: BP 146/95
--- NOTE | 2021-02-17 07:27 | EKG ---
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
[2021-02-17 08:14] VITALS: BP 152/96
[2021-02-17 12:03] VITALS: BP 115/54
--- NOTE | 2021-02-17 15:35 | NUR ---
ON-GOING ASSESSMENT: CM REVIEWED CHART. CM FAXED UPDATED CLINICAL TO [facility] LOCATION AND NOTIFIED LIASON ARIEL IN ADMISSIONS. AWAITING INSURANCE AUTH AT THIS TIME. CM NOTIFIED PATIENT.
--- NOTE | 2021-02-17 15:50 | NUR ---
RN ASSUMED PT'S CARE AT 0700AM, PT IS A&OX2 ( PERSON AND PLACE), PT CAN FOLLOW COMMANDS, PT'S VS ARE STABLE, PT GETS UP TO CHAIR WITH ASSIST, PT DENIES PAIN AND SYNCOPE BY THIS TIME.
[2021-02-17 16:24] VITALS: BP 115/65
[2021-02-17 19:25] VITALS: BP 101/62
--- NOTE | 2021-02-18 03:11 | NUR ---
ASSUMED PT CARE AT 1900, SR ON TELE, DENIES PAIN OR SOB, ASSESSMENTS CHARTED, MEDS GIVEN PER AUG, NO NEEDS AT THIS TIME, WILL CONTINUE TO MONITOR
[2021-02-18 04:13] VITALS: BP 145/94
[2021-02-18 08:00] VITALS: BP 169/96
[2021-02-18 11:20] VITALS: BP 144/53
[2021-02-18] MEDS ORDERED: HYDROCORTISONE10 MG PO (12:30)
[2021-02-18] MEDS ORDERED: FELODIPINE 5 MG5 M1 PO (12:30)
--- NOTE | 2021-02-18 15:46 | NUR ---
Patient to discharge to [facility] today. Faxed orders. [facility] arranged transport for 1400. Chart copied. Transfer forms faxed. Notified son.
== END 2021-02-18 15:00 | DRG 917 ==
LOC: ER 13:34 → EROBS 15:58 → 2N 15:58
PROVIDERS: Emergency Medicine; Internal Medicine; Physician Assistant; ADMIT Internal Medicine; ATTEND Internal Medicine
DX: T50.901A Poisoning by unspecified drugs, medicaments and biological substances, accidental (unintentional), initial encounter (principal); J18.9 Pneumonia, unspecified organism; E27.40 Unspecified adrenocortical insufficiency; N39.0 Urinary tract infection, site not specified; I95.2 Hypotension due to drugs; Z20.822 Contact with and (suspected) exposure to COVID-19; M10.9 Gout, unspecified; N18.9 Chronic kidney disease, unspecified; F03.90 Unspecified dementia, unspecified severity, without behavioral disturbance, psychotic disturbance, mood disturbance, and anxiety; E03.9 Hypothyroidism, unspecified; E78.5 Hyperlipidemia, unspecified; R53.81 Other malaise; G40.909 Epilepsy, unspecified, not intractable, without status epilepticus; D49.6 Neoplasm of unspecified behavior of brain; I11.0 Hypertensive heart disease with heart failure; Z88.2 Allergy status to sulfonamides; Z79.899 Other long term (current) drug therapy
CPT/HCPCS: 10081